=== PATIENT | female | born 1970 | race Caucasian/White ===

== ENCOUNTER 2020-10-27 11:48 | Emergency (ER) | payer OTHER ==
[~2020-10-27] VITALS: Ht 175.3 cm; Wt 68.2 kg
[2020-10-27 11:51] VITALS: BP 128/77
[2020-10-27] MEDS ORDERED: ESTROGEN PATCH TD (11:58)
[2020-10-27] MEDS ORDERED: PROG100C24 PO (11:58)
== END 2020-10-27 13:19 | disposition home or self-care (01) ==
LOC: EMS 11:48
DX: T81.31XA Disruption of external operation (surgical) wound, not elsewhere classified, initial encounter (principal); L08.9 Local infection of the skin and subcutaneous tissue, unspecified
CPT/HCPCS: 99283; Z7502